=== PATIENT | female | born 1990 ===

== ENCOUNTER 2020-05-23 22:15 | Emergency (ER) | payer OTHER ==
[~2020-05-23] VITALS: Ht 165.1 cm; Wt 88.5 kg
[2020-05-24] MEDS ORDERED: ACETAMINOPHEN650 M2 PO ×2 (01:35→01:36)
== END 2020-05-24 02:08 | disposition home or self-care (01) ==
LOC: ER 22:15
DX: O03.4 Incomplete spontaneous abortion without complication (principal)